=== PATIENT | female | born 1935 | race Caucasian/White ===

== ENCOUNTER 2023-08-21 15:48 | Outpatient (RCR) | payer MEDICARE, OTHER, SELFPAY | END 2023-09-21 16:52 | disposition home or self-care (01) | LOC: PT 15:48 | PROVIDERS: PCP Internal Medicine Hematology & Oncology; Visit Provider Internal Medicine Hematology & Oncology | DX: M19.90 Unspecified osteoarthritis, unspecified site (principal); M40.00 Postural kyphosis, site unspecified | CPT/HCPCS: 97110; 97140; 97162; G0283 ==